=== PATIENT | male | born 1975 | race Caucasian/White ===

== ENCOUNTER 2020-12-23 15:43 | Emergency (ER) | payer OTHER ==
[~2020-12-23] VITALS: Ht 182.9 cm; Wt 96.8 kg
[2020-12-23 15:59] VITALS: TEMP 98.6
[2020-12-23] MEDS ORDERED: PRINIVIL20 MG PO (16:06)
[2020-12-23 17:04] LABS: COLLECTION METHOD CLEAN CATCH
[2020-12-23 17:11] LABS: MUCOUS Present /lpf; PH 5 (5-8); SQUAMOUS EPITHELIAL None Seen /hpf; URINE APPEARANCE Clear; URINE BACTERIA None Seen /hpf; URINE BILIRUBIN Negative (NEGATIVE); URINE BLOOD Negative (NEGATIVE); URINE COLOR Yellow; URINE GLUCOSE Negative (NEGATIVE); URINE KETONE Negative (NEGATIVE); URINE LEUKOCYTE ESTERASE Negative (NEGATIVE); URINE NITRATE Negative (NEGATIVE); URINE PROTEIN(semi-quant) Negative (NEGATIVE); URINE RBC 0-2 /hpf; URINE UROBILINOGEN Negative (NEGATIVE)
[2020-12-23] MEDS ORDERED: DOXYCYCLINE HY100 MG PO (18:28)
[2020-12-23 18:55] VITALS: BP 132/71; PULSE 84
== END 2020-12-23 18:51 | disposition home or self-care (01) ==
LOC: COL.ER 15:43
PROVIDERS: Physician Assistant
DX: N45.3 Epididymo-orchitis (principal)
CPT/HCPCS: J0696